=== PATIENT | male | born 1990 | race Caucasian/White ===

== ENCOUNTER → 2017-08-11 08:32 | Outpatient (CLI) | payer OTHER, SELFPAY ==
--- NOTE | 2017-08-11 08:37 | CA_ITS ---
PROCEDURE: 2-D M-mode and color Doppler study INDICATIONS FOR THE TEST: Chest pain COPD Heart Murmur Tobacco SmokingX Palpitations Fatigue Syncope Edema Hypertension Diabetes Mellitus Rheumatic Fever SOB STEPHEN Obesity Hyperlipidemia Family History HD Additional History TACHYCARDIA PATIENT INFORMATION HEIGHT: 70 WEIGHT:150 GENDER: Male B/P:120/80 2-D/M-MODE INTERPRETATION: 2-D MEASUREMENTS OBSERVED VALUES IN CMS Right Ventricular Dimension (RVDd) 2.6 Interventricular Septum (Thickness)(IVsd) .6 Left Ventricular Internal Dimensions(LVIDd) 5.0 Left Ventricular Posterior Wall (Thickness)(LVPWd) .8 Aortic Root 3.3 Aortic Cusp Separation 2.1 Left Atrial Dimensions (LAD) 1.8 2D 1. Left atrium is normal size, left ventricle is normal size, there is no concentric left ventricular hypertrophy, visually estimated ejection fraction 55% with no obvious regional wall motion abnormality. 2. The right atrium and right ventricle are normal size and contractility. 3. The aortic, mitral and tricuspid valve are structurally normal. 4. The pulmonic valve is poorly visualized. 5. No significant pericardial effusion noted. DOPPLER INTERROGATION: Doppler interrogation of the aortic, mitral and tricuspid valvular presence of mild mitral and tricuspid regurgitation, tricuspid and jet velocity is insufficient for calculation of the right ventricular systolic pressure, diastolic parameters are within normal range. CONCLUSION: 1. Normal left ventricular size, preserved left ventricular systolic function, visually estimated ejection fraction 55% with no obvious regional wall motion abnormality. Diastolic parameters are within normal range. 2. Mild mitral and tricuspid regurgitation. 3. No significant pericardial effusion noted.
== END ==
PROVIDERS: Family Provider Physician Assistant; PCP Nurse Practitioner Family; Visit Provider Internal Medicine
CPT/HCPCS: 93225; 93306

== ENCOUNTER → 2017-08-11 09:47 | Outpatient (CLI) | payer OTHER, SELFPAY ==
[2017-08-11 11:11] LABS: Free T4 (Free Thyroxine) 1.13 ng/dl (0.76-1.46); Thyroid Stimulating Hormone 1.25 uIU/ml (0.358-3.740)
[2017-08-12 19:01] LABS: Triiodothyronine (T3) Total 165 ng/dL (71-180)
== END ==
PROVIDERS: Family Provider Physician Assistant; PCP Nurse Practitioner Family; Visit Provider Internal Medicine Cardiovascular Disease
DX: R00.0 Tachycardia, unspecified (principal); Z87.09 Personal history of other diseases of the respiratory system; F41.9 Anxiety disorder, unspecified
CPT/HCPCS: 36415; 84439; 84443; 84480